=== PATIENT | female | born 1970 | race Caucasian/White ===

== ENCOUNTER 2017-01-09 12:41 | Emergency (ER) | payer MEDICARE, OTHER ==
[2017-01-09] MEDS ORDERED: LORazepam 0.5 MG TABLET PO STA (13:01)
[2017-01-09] MEDS ORDERED: DIPHENOX/ATROPINE 2.5/0.025 MG TABLET PO STA (13:01)
[2017-01-09] MEDS ORDERED: cloNIDine 0.1 MG TABLET PO STA (13:01)
--- NOTE | 2017-01-09 13:04 | ED Physician Documentation ---
History of Present Illness - Stated complaint Stated Complaint: DETOX - Chief complaint Chief Complaint: General - History obtained from History obtained from: Patient, Family - History of Present Illness Timing: Other (Because of some medication mismanagement she ran out of her oxycodone for chronic pain early. Her doctor would not refill it and he referred her here for symptom management. She describes diarrhea, diffuse body pain, and anxiety.) Review of Systems Constitutional: reports: Chills, Fatigue. denies: Fever Ears: denies: Loss of hearing, Ear pain Nose: denies: Rhinorrhea / runny nose, Congestion Cardiac: denies: Chest pain / pressure PD PAST MEDICAL HISTORY - Present Medications Home Medications: Ambulatory Orders Medication Instructions Recorded Confirmed Diphenoxylate/Atropine [Lomotil] 1 each PO QID PRN #15 tablet 01/09/17 Lorazepam [Ativan] 1 mg PO TID PRN #10 tablet 01/09/17 cloNIDine [Catapres] 0.1 mg PO BID #10 tablet 01/09/17 - Allergies Allergies/Adverse Reactions: Allergies Allergy/AdvReac Type Severity Reaction Status Date / Time mushroom Allergy Anaphylaxis Verified 01/09/17 12:49 NSAIDS (Non-Steroidal Allergy Unknown Verified 01/09/17 12:49 Anti-Inflamma glatiramer acetate * AdvReac Anaphylaxis Verified 01/09/17 12:49 [From Copaxone] contrast Allergy Unknown Uncoded 01/09/17 12:49 PD ED PE NORMAL - Vitals Vital signs reviewed: Yes - General General: Alert and oriented X 3, No acute distress - HEENT HEENT: PERRL - Derm Derm: Normal color, Warm and dry, No rash - Neuro Neuro: Alert and oriented X 3, rn staffing 2-12 intact, Normal speech - Psych Psych: Normal mood, Normal affect Results - Vitals Vitals: Vital Signs - 24 hr 01/09/17 01/09/17 12:44 13:19 Temperature 37.0 C 37.0 C Heart Rate 100 99 Respiratory 17 18 Rate Blood Pressure 104/71 106/74 O2 Saturation 100 100 Oxygen O2 Source Room air PD MEDICAL DECISION MAKING - ED course ED course: The patient and family were counseled as to the diagnosis and need for followup. I counseled the patient with regard to signs and symptoms that would necessitate an urgent reevaluation in the emergency department. They understand they are welcome to return at any time if worse or if not improving as expected. This document was made in part using voice recognition software. While efforts are made to proofread this document, sound alike and grammatical errors may occur. Departure - Departure Disposition: 01 Home, Self Care Clinical Impression: Narcotic withdrawal Condition: Good Record reviewed to determine appropriate education?: Yes Instructions: ED Withdrawal Narcotic Prescriptions: Lorazepam [Ativan] 1 mg PO TID PRN #10 tablet PRN Reason: Anxiety cloNIDine [Catapres] 0.1 mg PO BID #10 tablet Diphenoxylate/Atropine [Lomotil] 1 each PO QID PRN #15 tablet PRN Reason: Diarrhea Comments: Tylenol as needed for pain. Call your doctor to arrange a follow up appointment. Make the next available appointment. In the interim return anytime if worse or if new symptoms develop. Do not drink or drive on any of the prescription medications. Do not take your alprazolam/Xanax while taking the Ativan/lorazepam that I've prescribed you. Do not take the Ativan/lorazepam within 4 hours of your clonazepam. Discharge Date/Time: 01/09/17 13:19
[2017-01-09] MEDS ORDERED: DIPHENOX/ATROPINE 2.5/0.025 MG TABLET PO ONE (13:05)
[2017-01-09] MEDS ORDERED: cloNIDine 0.1 MG TABLET ONE (13:05)
[2017-01-09] MEDS ORDERED: LORazepam 0.5 MG TABLET ONE (13:05)
[2017-01-09 13:20] VITALS: BP 106/74
== END 2017-01-09 13:19 | disposition home or self-care (01) ==
LOC: ED 12:41
DX: F11.23 Opioid dependence with withdrawal (principal)
CPT/HCPCS: 99283; A9270

== ENCOUNTER 2021-06-22 08:00 | Outpatient (CLI) | payer MEDICARE, OTHER ==
--- NOTE | 2021-06-22 16:15 | XRAY Report ---
PROCEDURE: Knee 3 View LT INDICATIONS: KNEE PAIN, LEFT TECHNIQUE: 3 views of the left knee(s) were acquired. COMPARISON: None. FINDINGS: No acute fracture identified. Joint spaces grossly preserved. No definite joint effusion. Anterior so ft tissue swelling. IMPRESSION: Anterior soft tissue swelling. If the patient's pain or other symptoms persist, consider further evaluation with MRI. Reviewed by: Juan Carlos Palomino MD on 06/22/2021 4:14 PM PST Approved by: Juan Carlos Palomino MD on 06/22/2021 4:14 PM PST Station ID: [id number]
== END 2021-06-22 23:59 | disposition home or self-care (01) ==
LOC: DI.S 08:00
PROVIDERS: ATTEND Physician Assistant
DX: M25.562 Pain in left knee (principal); R93.6 Abnormal findings on diagnostic imaging of limbs; R93.89 Abnormal findings on diagnostic imaging of other specified body structures

== ENCOUNTER 2024-02-11 08:00 | Outpatient (CLI) | payer MEDICARE, OTHER ==
--- NOTE | 2024-02-11 15:05 | XRAY Report ---
PROCEDURE: Hand 3+V RT INDICATIONS: CONTUSION TO RIGHT HAND TECHNIQUE: 3 views of the hand(s) acquired. COMPARISON: None. FINDINGS: Bones: No fractures or dislocations. No suspicious bony lesions. Soft tissues: No suspicious soft tissue calcifications or masses. IMPRESSION: No visualized acute fracture or dislocation. However, occult injury cannot be excluded. Recommend lakshmi rt interval imaging follow-up in 7-10 days as clinically indicated for additional evaluation. Reviewed by: Aria Epps MD on 02/11/2024 3:04 PM PDT Approved by: Aria Epps MD on 02/11/2024 3:04 PM PDT Station ID: [id number]
== END 2024-02-11 23:59 | disposition home or self-care (01) ==
LOC: DI.S 08:00
PROVIDERS: ATTEND Registered Nurse
DX: S60.121A Contusion of right index finger with damage to nail, initial encounter (principal)